=== PATIENT | male | born 1960 | race Caucasian/White ===

== ENCOUNTER → 2018-10-29 | Outpatient (CLI) | payer OTHER, SELFPAY ==
--- NOTE | 2018-10-29 09:58 | VDLE_ITS ---
Reason For Study: DVT RIGHT LEFT CFV is compressible, spontaneous, phasic, GSV is normal. competent and demonstrates normal CFV is compressible, spontaneous, phasic, augmentation. competent, and demonstrates normal Procedure augmentation. Exam performed in department. FV is compressible, spontaneous, phasic, A preliminary report was called and/or faxed competent and demonstrates normal to Dr. Kessler. augmentation. POP V is compressible, spontaneous, phasic, competent and demonstrates normal augmentation. T/P Trunk is compressible. PTV is compressible. LT PerV is compressible. Hypoechoic, non vascular structure noted Lt Pop Fossa measuring 2.4cm x 0.94cm. Interpretation Summary There is no evidence of left lower extremity deep vein thrombosis. Left greater saphenous vein appears patent and compressible segmentally. Left popliteal fossa 2.4 x 0.94 cm Hicks's cyst Normal flow patterns right common femoral vein Ordering Physician: ISAC KESSLER Referring Physician: ISAC KESSLER Performed By: Yara Duarte, MARIO ALBERTO, RVT
== END | disposition home or self-care (01) ==
LOC: CVS 09:54
DX: I82.91 Chronic embolism and thrombosis of unspecified vein (principal); I82.492 Acute embolism and thrombosis of other specified deep vein of left lower extremity; R60.0 Localized edema
CPT/HCPCS: 93971

== ENCOUNTER → 2019-06-25 | Outpatient (CLI) | payer OTHER, SELFPAY ==
--- NOTE | 2019-06-25 16:45 | MRI_ITS ---
STUDY: MRI LEFT KNEE REASON FOR EXAM: Male, 58 years old. Pain. TECHNIQUE: Standardized fat and water weighted pulse sequences were obtained in all 3 orthogonal planes. COMPARISON: None. FINDINGS: Medial meniscus tear of the posterior horn, series 4 images through . There is diffuse, full thickness articular cartilage loss of the medial femorotibial compartment. There is moderate osteoarthritic spur formation of the medial knee compartment. Normal medial collateral ligamentous complex (MCL). Normal distal semimembranosus, gracilis and semitendinosus tendons. Normal lateral meniscus. Normal hyaline cartilage of the lateral femorotibial compartment. Normal lateral femoral condyle and tibial plateau. Normal proximal tibiofibular articulation. Normal lateral collateral (fibular) ligament. Normal popliteus tendon. Normal biceps femoris tendon. There is edema with swelling and loss of definition of the of the ACL fascicles, producing a celery stick appearance, with preservation of the continuity of fibers, consistent with mucoid cystic degeneration. Normal posterior cruciate ligament (PCL). There is arthrosis of the patellofemoral articulation. There is diffuse, less than 50% thickness articular cartilage loss of the patellofemoral compartment. Normal medial and lateral patellar retinaculum. Normal quadriceps tendon. Normal patellar tendon. Normal Hoffa''s fat pad. There is a small volume joint effusion. There is a 3.3 cm Hicks''s cyst. The soft tissues are unremarkable. The otherwise visualized osseous structures are unremarkable. MRI/Lower Ext Joint Only (Routine) IMPRESSION: Medial meniscus tear. 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 Degenerative changes. Joint effusion with popliteal cyst. Electronically Signed: Roosevelt Meneses MD at 17:56 EST , Service support ,
== END | disposition home or self-care (01) ==
LOC: MRI 16:16
DX: M12.80 Other specific arthropathies, not elsewhere classified, unspecified site (principal)
CPT/HCPCS: 73721

== ENCOUNTER 2024-08-20 08:03 | Day surgery (SDC) | payer OTHER, SELFPAY ==
[2024-08-20] VITALS (9 sets, daily range): BP systolic 115–168; BP diastolic 72–99; PULSE 58–77; RESP 14–16; TEMP 36–36.5; O2SAT 96–98; BMI 36.6
--- NOTE | 2024-08-20 09:01 | HP.PCM_ITS ---
HPI - General HPI Narrative BRIANA PRETTY, is a 64 M who presents for screening colonoscopy. Patient has never had a colonoscopy in the past. He denies abdominal pain or blood in the stool. He has no family history of colon cancer. [facility] Medical History (Updated 08/15/24 @ 11:22 by Rita Bone) Wears glasses Arthritis High cholesterol Eczema HTN (hypertension) Home Medications ?Medication ?Instructions ?Recorded ?Last Taken ?Type enalapril maleate 10 mg tablet 10 mg PO QDAY 06/10/24 08/19/24 History (Vasotec) ezetimibe 10 mg tablet (Zetia) 10 mg PO QDAY 06/10/24 08/19/24 History fenofibrate nanocrystallized 145 145 mg PO QDAY 08/19/24 History mg tablet (Tricor) metoprolol tartrate 50 mg tablet 50 mg PO QDAY 5 08/20/24 History (Lopressor) multivitamin (Daily Multi-Vitamin 1 tab PO DAILY 08/1508/19/24 History tablet) Allergy/AdvReac Type Severity Reaction Status Date / Time latex Allergy Eczema Verified 08/20/24 08:23 Flare up Surgical History (Updated 08/15/24 @ 11:22 by Rita Bone) Hx of appendectomy History of right hip replacement Hx of knee surgery Hx of repair of rotator cuff Social History (Updated 06/10/24 @ 16:14 by Carla Solomon) household members: spouse current occupational status: employed Smoking Status: Never smoker details: Rare alcohol substance use type: does not use Past Medical/Surgical History Planned Operation Planned Operative Procedure(s): COLONOSCOPY-OA Previous Hospitalizations/Surgeries HX Hospitalizations: No Any Problems With Anesthesia: No You/Your Family Experience Fever (Hyperthermia) With Anes: No Cholinesterase deficiency: No Cardiovascular Hx Hypertension: Yes (CONTROLLED ON MED) Respiratory Hx Sleep Apnea: No Hx Respiratory Tract Infection/Cold (presently): No Do You Snore Loudly (louder than talking or can be heard): No Do You Often Feel Tired/ Fatigued/ Sleepy Dring Daytime?: No Has Anyone Observed You Stop Breathing During Sleep?: No Result (for STOP score): Negative Smoking Status: Never smoker Neurological Does patient have nerve stimulator: No Reproduction : No Miscellaneous Recent Exposure to Contagious Disease: No Allergies latex Allergy (Verified 08/20/24 08:23) Eczema Flare up Discharge Is Pt Admitted From a Group Home, or a Long Term: No After D/C, Where Do you Plan to Go: Return Home Vital Signs Vital Signs Vital Signs: 08/20/24 08:29 08/20/24 08:29 Temperature 96.8 F L Temperature Source Temporal Pulse Rate 64 Respiratory Rate 16 Respiratory Pattern Normal Blood Pressure 168/95 H Blood Pressure Mean 119 Blood Pressure Source Monitor Blood Pressure Position Semi-Fowlers Blood Pressure Location Left Arm Pulse Ox 97 Oxygen Delivery Method Room Air Weight Weight: 233 lb 11.04 oz Body Mass Index (BMI) 36.6 Physical Exam Const alert and oriented x3 HEENT normocephalic Eyes PERRL Resp normal respiratory effort and normal air movement Cardio regular rate and regular rhythm GI soft to palpation, non-tender and non-distended Extremity normal to inspection Assessment & Plan Assessment/Plan (1) Encounter for screening for malignant neoplasm of colon: PLAN: I explained endoscopy in detail to the patient. I explained the risks including but not limited to stroke or heart attack with anesthesia, perforation of the GI tract, bleeding, infection. I explained that any of these could necessitate further emergency surgery. The patient understands and all questions were answered sufficiently. The patient wishes to proceed with procedure. Tuan Wolf MD Pager: [facility] [address] [place] [address], [address] [place] [phone] Office: Surgery Risks - Colonoscopy Risks Include but are not Limited To: Risks include but are not limited to: Bleeding, perforation requiring further surgery, inability to complete colonoscopy requiring barium enema.
--- NOTE | 2024-08-20 09:03 | PCM.PRE.AN2 ---
ASA Classification* ASA Classification ASA Classification: 2 Assessment & Plan Anesthesia* Anesthesia Assessment Anesthesia Assessment: Discussed sedation and/or anesthesia options, risks, benefits, and alternatives with patient/parents/legal guardian/POA. Questions invited. The patient/parents/legal guardian/POA seems to understand and agrees to proceed with anesthesia plan. Reviewed the physical assessment, medical history, allergy history and patient home medications list prior to surgery/procedure/anesthetic and documented any changes. Performed airway and anesthesia risk assessments. Anesthesia Type Anesthesia Type: MAC History Source History Obtained from:: Patient and Chart Anesthesia Focused Assessment* Temperature: 96.8 F Pulse Rate: 64 Blood Pressure: 168/95 Respiratory Rate: 16 Pulse Ox: 97 Oxygen Delivery Method: Room Air Airway Assessment Mouth opens: >3 cm Mallampati Score: III Teeth Condition: Caps/Crowns (Patient has a crown. It is tight. ) and Missing (Patient is missing several teeth. The rest are tight.) Neck Range of motion (ROM): Full ROM Focused Labs Anesthesia Preop lab: CBC CHEMISTRY COAG Pre-Assessment Diagnosis/Proposed Procedure Planned Operative Procedure(s): COLONOSCOPY-OA Anesthesia History Anesthesia History - critical care nurse specialist: Anesthesia History - critical care nurse specialist Hx Hospitalization No 08/20/24 09:01 Any Problems With Anesthesia No 08/20/24 09:01 Cholinesterase deficiency No 08/20/24 09:01 You/Your Family Experience No 08/20/24 09:01 fever (hyperthermia) with Relationship Recent Exposure to Contagious No 08/20/24 09:01 Disease Does patient have nerve No 08/20/24 09:01 stimulator Patient instructed to have device shut off --Does patient have Pacemaker No 08/20/24 08:29 or ICD? When Was Last Pacemaker Check QUESTION #4 FULL TEXT: You/Your Family Experience fever (hyperthermia) with Anesthesia Last Oral Intake Last Oral intake: Last Oral Intake NPO since 05:00 08/20/24 08:29 Meds taken in AM with sips of Yes 08/20/24 08:29 water? Meds patient instructed to take am of surgery Any additional information?: Yes NPO since: 05:00 (Patient finished prep at 5 AM.) PONV PONV - critical care nurse specialist: PONV - critical care nurse specialist Female No 08/15/24 11:22 HX of Motion Sickness No 08/15/24 11:22 HX of N/V After Surgery No 08/15/24 11:22 Non-Smoker Yes 08/15/24 11:22 Duration of Surgery greater No 08/15/24 11:22 than 60 minutes Number of Risk Factors 1 08/15/24 11:22 PONV Score Low Risk 08/15/24 11:22 Height & Weight Height & Weight: Anesthesia: Height & Weight Height 5 ft 7 in 08/20/24 08:29 Weight: 106 kg 08/20/24 08:29 Body Mass Index (BMI) 36.6 08/20/24 08:29 Respiratory Assessment Respiratory Assessment - critical care nurse specialist: Respiratory Tract Infection Hx - critical care nurse specialist Hx Respiratory Tract Infection No 08/20/24 09:01 STOP Sleep Apnea STOP Sleep Apnea - critical care nurse specialist: STOP Sleep Apnea - critical care nurse specialist Hx Hypertension Yes: CONTROLLED ON MED 08/20/24 09:01 Hx Sleep Apnea No 08/20/24 09:01 CPAP BIPAP Do you snore loudly (louder No 08/20/24 09:01 than talking or can be heard Do you often feel tired/ No 08/20/24 09:01 fatigued/ sleepy during daytime? Has anyone observed you stop No 08/20/24 09:01 breathing during sleep? STOP Results Negative 08/20/24 09:01 QUESTION #5 FULL TEXT : Do you snore loudly (louder than talking or can be heard through closed doors)? Tobacco Use History Tobacco Use History - critical care nurse specialist: Tobacco Use History - critical care nurse specialist Tobacco Use Smoking Status Never smoker 08/20/24 09:01 Hx Tobacco Use No 08/15/24 11:22 Years Smoking Packs Smoked per Day Smoking Cessation Date was within the last 15 years Hx Smoking Cessation Date Hx Smoking Cessation Counseling Hematologic Medial History Hematologic Hx - critical care nurse specialist: Hematologic Medical Hx - pastry artist Hx of Blood Transfusion No 08/15/24 11:22 Hx of Transfusion in last 3 No 08/15/24 11:22 Months Date of Last Transfusion (if within last 3 months) Ever experience any problems No 08/15/24 11:22 with transfusion(s)? Specify any problems Hx of Preganancy in last 3 N/A 08/15/24 11:22 Months Nurse Filling Out Transfusion VCHRISTIN 08/15/24 11:22 & Questions: Date: 08/15/24 08/15/24 11:22 Time: 11:23 08/15/24 11:22 Patient unable to answer at this time (ie. confused, unrespo /Reproduction History /Reproductive History - critical care nurse specialist: /Reproductive Hx- critical care nurse specialist Hx Now No 08/20/24 09:01 Gestational Age (in weeks): EDC: Hx Hx Para Hx Section SAB No 08/15/24 11:22 [facility] Medical History Wears glasses Arthritis High cholesterol Eczema HTN (hypertension) Home Medications ?Medication ?Instructions ?Recorded ?Last Taken ?Type enalapril maleate 10 mg tablet 10 mg PO QDAY 06/10/24 08/19/24 History (Vasotec) ezetimibe 10 mg tablet (Zetia) 10 mg PO QDAY 06/10/24 08/19/24 History fenofibrate nanocrystallized 145 145 mg PO QDAY 06/10/24 08/19/24 History mg tablet (Tricor) metoprolol tartrate 50 mg tablet 50 mg PO QDAY 06/10/24 08/20/24 History (Lopressor) multivitamin (Daily Multi-Vitamin 1 tab PO DAILY 08/15/24 08/19/24 History tablet) Allergy/AdvReac Type Severity Reaction Status Date / Time latex Allergy Eczema Verified 08/20/24 08:23 Flare up Surgical History Hx of appendectomy History of right hip replacement Hx of knee surgery Hx of repair of rotator cuff Social History household members: spouse current occupational status: employed Smoking Status: Never smoker details: Rare alcohol substance use type: does not use Review of Systems (Anesthesia) ROS Narrative System reviewed and no additional complaints, except as documented.
--- NOTE | 2024-08-20 09:22 | OP.CCLET_ITS ---
08/20/2024 Héctor Klein Md Re : Colonoscopy procedure for John Mcdaniels Dear Ernie This procedure was performed on Tuesday, August 20, 2024. My impressions and recommendations are as follows: Impressions : - The entire examined colon is normal on direct and retroflexion views. - No specimens collected. Recommendations : - Discharge patient to home. - Resume previous diet. - Continue present medications. - Repeat colonoscopy in 10 years for screening purposes. My findings are described in the full procedure note, which is enclosed. If I can be of further assistance, please feel free to contact me at Doctor phone number(s): , Work: . Sincerely, Tuan Wolf MD 08/20/2024 9:22:06 AM This report has been signed electronically.
--- NOTE | 2024-08-20 09:22 | OP.COLON_ITS ---
Patient Name: John Mcdaniels Procedure Date: 08/20/2024 9:04 AM Date of : 1960 Age: 64 Procedure: Colonoscopy Indications: Screening for colorectal malignant neoplasm Providers: Tuan Wolf MD Referring MD: Héctor Klein Md Medicines: Propofol per Anesthesia Patient Profile: This is a 64 year old male. Refer to note in patient chart for documentation of history and physical. Last Colonoscopy: none. The patient's first colonoscopy is today. Complications: No immediate complications. Procedure: Pre-Anesthesia Assessment: - Prior to the procedure, a History and Physical was performed, and patient medications and allergies were reviewed. The patient's tolerance of previous anesthesia was also reviewed. The risks and benefits of the procedure and the sedation options and risks were discussed with the patient. All questions were answered, and informed consent was obtained. Prior Anticoagulants: The patient has taken no anticoagulant or antiplatelet agents. After reviewing the risks and benefits, the patient was deemed in satisfactory condition to undergo the procedure. After I obtained informed consent, the scope was passed under direct vision. Throughout the procedure, the patient's blood pressure, pulse, and oxygen saturations were monitored continuously. The Colonoscope was introduced through the anus and advanced to the cecum, identified by appendiceal orifice and ileocecal valve. The colonoscopy was performed without difficulty. The patient tolerated the procedure well. The quality of the bowel preparation was good. The ileocecal valve, appendiceal orifice, and rectum were photographed. Scope In: 9:12:30 AM Scope Withdrawal Time 0 hours 6 minutes 18 seconds Scope Out: 9:20:17 AM Total Procedure Duration Time 0 hours 7 minutes 47 seconds Findings: The entire examined colon appeared normal on direct and retroflexion views. Impression: - The entire examined colon is normal on direct and retroflexion views. - No specimens collected. Recommendation: - Discharge patient to home. - Resume previous diet. - Continue present medications. - Repeat colonoscopy in 10 years for screening purposes. Procedure Code(s): --- Professional --- 33174, Colonoscopy, flexible; diagnostic, including collection of specimen(s) by brushing or washing, when performed (separate procedure) Diagnosis Code(s): --- Professional --- Z12.11, Encounter for screening for malignant neoplasm of colon CPT copyright 2022 [employer]. All rights reserved. The codes documented in this report are preliminary and upon systems integrator review may be revised to meet current compliance requirements. Tuan Wolf MD 08/20/2024 9:22:06 AM This report has been signed electronically. Number of Addenda: 0 Note Initiated On: 08/20/2024 9:04 AM
--- NOTE | 2024-08-20 09:25 | PCM.POST.ANE ---
Anesthesia: Postop Eval I Current Vital Signs Temperature: 97 F Pulse Rate: 72 Blood Pressure: 118/72 Respiratory Rate: 14 Pulse Ox: 98 Oxygen Delivery Method: Room Air Assessment Airway patent: Yes Spontaneous unlabored respirations: Yes Mental status: Awake nausea: No Vomiting: No Anesthesia Complication: No Fluid Hydration Crystalloid volume administer (ml): 10 Total IV fluid infused: 10 Progress Note Anesthesia document: Postop Eval 1 completed: Yes
--- NOTE | 2024-08-20 09:42 | POSTOPAN2_ITS ---
Anesthesia Postop Eval I Sum Postop Eval Completion status Anesthesia document: Postop Eval 1 completed: Yes Anesthesia Postop Eval I Summary Anesthesia Postop Eval I Summary: Anesthesia Postop Eval I: Assessment Summary Airway patent Yes 08/20/24 09:29 [email or web address] Spontaneous unlabored Yes 08/20/24 09:29 [email or web address] respirations Mental status Awake 08/20/24 09:29 [email or web address] nausea No 08/20/24 09:29 [email or web address] Vomiting No 08/20/24 09:29 [email or web address] Anesthesia Postop Eval I: Fluid Summary Crystalloid volume administer 10 08/20/24 09:29 [email or web address] (ml) Colloids volume administered ( ml) Blood Product volume administered (ml) Total IV fluid infused 10 08/20/24 09:29 [email or web address] Anesthesia Postop Eval I: Summary Notes Anesthesia Complication No 08/20/24 09:29 [email or web address] Anesthesia Complication Comment: Post-operative progress note Anesthesia: Postop Eval II Evaluation Mental status: Awake and Calm Pain Level: 0 nausea: No Vomiting: No Complications Anesthesia Complication: No
--- NOTE | 2024-08-20 09:42 | PCM.POSTANE2 ---
Anesthesia Postop Eval I Sum Postop Eval Completion status Anesthesia document: Postop Eval 1 completed: Yes Anesthesia Postop Eval I Summary Anesthesia Postop Eval I Summary: Anesthesia Postop Eval I: Assessment Summary Airway patent Yes 08/20/24 09:29 [email or web address] Spontaneous unlabored Yes 08/20/24 09:29 [email or web address] respirations Mental status Awake 08/20/24 09:29 [email or web address] nausea No 08/20/24 09:29 [email or web address] Vomiting No 08/20/24 09:29 [email or web address] Anesthesia Postop Eval I: Fluid Summary Crystalloid volume administer 10 08/20/24 09:29 [email or web address] (ml) Colloids volume administered ( ml) Blood Product volume administered (ml) Total IV fluid infused 10 08/20/24 09:29 [email or web address] Anesthesia Postop Eval I: Summary Notes Anesthesia Complication No 08/20/24 09:29 [email or web address] Anesthesia Complication Comment: Post-operative progress note Anesthesia: Postop Eval II Evaluation Mental status: Awake and Calm Pain Level: 0 nausea: No Vomiting: No Complications Anesthesia Complication: No
== END 2024-08-20 10:00 | disposition home or self-care (01) ==
LOC: EN 08:18 → AC 08:35
PROVIDERS: PCP Internal Medicine Cardiovascular Disease; Referring Provider Internal Medicine Cardiovascular Disease; Visit Provider Surgery
PROC: 0DJD8ZZ Inspection of Lower Intestinal Tract, Via Natural or Artificial Opening Endoscopic (ICD-10-PCS; CPT 45378; principal; 2024-08-20 08:55)
DX: Z12.11 Encounter for screening for malignant neoplasm of colon (principal); I10 Essential (primary) hypertension; E78.00 Pure hypercholesterolemia, unspecified; Z79.899 Other long term (current) drug therapy
CPT/HCPCS: G0121; A4216